=== PATIENT | female | born 2000 | race Two or more races ===

== ENCOUNTER 2019-03-17 16:16 | Emergency (ER) | payer OTHER ==
[~2019-03-17] VITALS: Ht 157.5 cm; Wt 59.0 kg
[2019-03-17] MEDS ORDERED: SODIUM CHLORIDE 0.9% 1,000 ML IV ONE (17:15)
[2019-03-17 17:35] LABS: Basophils # (auto) 0 uL; Basophils % (auto) 0.2 % (0.0-2.0); Eosinophils # (auto) 0 uL; Eosinophils % (auto) 0.3 % (0.0-7.0); Hematocrit 42.3 % (36.0-46.0); Hemoglobin 14.2 g/dL (12.2-16.2); Lymphocytes # (auto) 1.8 uL; Lymphocytes % (auto) 25.9 % (10.0-50.0); Mean Corpuscular Hemoglobin 29.9 pg (28.0-32.0); Mean Corpuscular Hgb Conc. 33.5 g/dL (32.0-36.0); Mean Corpuscular Volume 89.2 fL (80.0-100.0); Monocytes # (auto) 0.4 uL; Monocytes % (auto) 6.2 % (0.0-12.0); Neutrophils # (auto) 4.7 uL; Neutrophils % (auto) 67.4 % (37.0-80.0); Nucleated Red Blood Cells % 0.1 %; Platelet Count (auto) 204 10^3/uL (140-450); Red Blood Cells 4.74 10^6/uL (4.0-5.20)
[2019-03-17 17:36] LABS: Alanine Aminotransferase 22 U/L (13-56); Albumin 4.8 g/dL (3.4-5.0); Anion Gap 10 (5-15); Aspartate Aminotransferase 26 U/L (15-37); Blood Urea Nitrogen 6 mg/dL (7-18); Carbon Dioxide 23 mmol/L (21-32); Chloride 104 mmol/L (98-107); Glucose 96 mg/dL (74-106); Magnesium 2.3 mg/dL (1.6-2.6); Potassium 3.1 mmol/L (3.5-5.1); Sodium 137 mmol/L (136-145)
[2019-03-17 17:40] LABS: Alkaline Phosphatase 65 U/L (45-117); BUN/Creatinine Ratio 8.8; Bilirubin, Total 0.4 mg/dL (0.2-1.0); GFR African American 142 mL/min; GFR Non-African American 117 mL/min; Total Protein 8.4 g/dL (6.4-8.2)
[2019-03-17 18:18] LABS: Urine WBC None Seen /hpf (0 - 5)
[2019-03-17 18:55] LABS: Alcohol, Urine < 3.0 mg/dL (0-5); Amphetamine Screen, Urine NEGATIVE (NEGATIVE); Barbiturate Scree,Urine NEGATIVE (NEGATIVE); Benzodiazephine Screen, Urine NEGATIVE (NEGATIVE); Cannabinoid Screen, Urine NEGATIVE (NEGATIVE); Cocaine Screen, Urine NEGATIVE (NEGATIVE); Opiate Scree,Urine NEGATIVE (NEGATIVE); Phencyclidine Screen, Urine NEGATIVE (NEGATIVE)
[2019-03-17 19:07] LABS: Urine Bacteria NONE SEEN /hpf (None Seen); Urine Blood TRACE /uL (Negative); Urine Specific Gravity 1.005 (1.001-1.035)
[2019-03-17] MEDS ORDERED: POTASSIUM CHL 20 Meq TABLET PO ONE (21:00)
[2019-03-17 21:08] VITALS: BP 112/60
== END 2019-03-17 21:36 | disposition home or self-care (01) ==
LOC: ER 16:16
DX: R07.89 Other chest pain (principal); E87.6 Hypokalemia
CPT/HCPCS: 36415; 71045; 80053; 80307; 81001; 81025; 83735; 84443; 84484; 85025; 85379; 93005; 94761; 99284; J7030

== ENCOUNTER 2019-05-21 09:11 | Emergency (ER) | payer MEDICAID ==
[~2019-05-21] VITALS: Ht 160 cm; Wt 50.8 kg
[2019-05-21 09:15] VITALS: BP 129/75
[2019-05-21 09:55] LABS: Basophils # (auto) 0 uL; Basophils % (auto) 0.5 % (0.0-2.0); Eosinophils # (auto) 0.1 uL; Eosinophils % (auto) 1.4 % (0.0-7.0); Hematocrit 41.8 % (36.0-46.0); Hemoglobin 14.1 g/dL (12.2-16.2); Lymphocytes # (auto) 1.8 uL; Lymphocytes % (auto) 39.1 % (10.0-50.0); Mean Corpuscular Hemoglobin 30.2 pg (28.0-32.0); Mean Corpuscular Hgb Conc. 33.8 g/dL (32.0-36.0); Mean Corpuscular Volume 89.4 fL (80.0-100.0); Monocytes # (auto) 0.4 uL; Neutrophils # (auto) 2.4 uL; Nucleated Red Blood Cells % 0.2 %; Platelet Count (auto) 196 10^3/uL (140-450); Red Blood Cells 4.68 10^6/uL (4.0-5.20); White Blood Cell 4.7 10^3/uL (4.4-10.8)
[2019-05-21 10:10] LABS: Albumin 4.2 g/dL (3.4-5.0); Calcium 9.1 mg/dL (8.5-10.1); Potassium 3.3 mmol/L (3.5-5.1)
[2019-05-21 10:14] LABS: BUN/Creatinine Ratio 11.1; Bilirubin, Total 0.4 mg/dL (0.2-1.0); Total Protein 8.2 g/dL (6.4-8.2)
== END 2019-05-21 10:53 | disposition home or self-care (01) ==
LOC: ER 09:23
DX: R10.32 Left lower quadrant pain (principal)
CPT/HCPCS: 36415; 80053; 81002; 81025; 85025

== ENCOUNTER → 2019-10-01 | Emergency (ER) | payer MEDICAID ==
[~2019-10-01] VITALS: Ht 160 cm; Wt 52.2 kg
[2019-10-01 17:00] LABS: Urine Amorphous Crystal FEW /hpf (None Seen); Urine Bacteria FEW /hpf (None Seen); Urine Blood Negative /uL (Negative); Urine Mucus FEW (None Seen); Urine WBC 1 /hpf (0 - 5)
[2019-10-01 17:07] LABS: Albumin 4.3 g/dL (3.4-5.0); Anion Gap 5 (5-15); Blood Urea Nitrogen 8 mg/dL (7-18); Calcium 8.9 mg/dL (8.5-10.1); Carbon Dioxide 27 mmol/L (21-32); Chloride 105 mmol/L (98-107); Glucose 99 mg/dL (74-106); Potassium 3.7 mmol/L (3.5-5.1); Sodium 137 mmol/L (136-145)
[2019-10-01 17:12] LABS: Alanine Aminotransferase 20 U/L (13-56); Alkaline Phosphatase 65 U/L (45-117); Aspartate Aminotransferase 17 U/L (15-37); BUN/Creatinine Ratio 11.4; Bilirubin, Total 0.3 mg/dL (0.2-1.0); GFR African American 136 mL/min; GFR Non-African American 112 mL/min; Total Protein 8.3 g/dL (6.4-8.2)
[2019-10-01 17:18] LABS: Basophils # (auto) 0 10 ^3/uL (0-0.2); Basophils % (auto) 0.4 % (0.0-2.0); Eosinophils # (auto) 0 10 ^3/uL (0-0.8); Eosinophils % (auto) 0.5 % (0.0-7.0); Hematocrit 41.3 % (36.0-46.0); Lymphocytes # (auto) 1.8 10 ^3/uL (0.4-5.4); Lymphocytes % (auto) 31.9 % (10.0-50.0); Mean Corpuscular Hemoglobin 30.5 pg (28.0-32.0); Mean Corpuscular Volume 89.9 fL (80.0-100.0); Monocytes # (auto) 0.4 10 ^3/uL (0-1.3); Monocytes % (auto) 7.4 % (0.0-12.0); Neutrophils # (auto) 3.3 10 ^3/uL (1.6-8.6); Neutrophils % (auto) 59.8 % (37.0-80.0); Nucleated Red Blood Cells % 0.2 %; Platelet Count (auto) 221 10^3/uL (140-450); Red Blood Cells 4.59 10^6/uL (4.0-5.20); Red Cell Distribution Width 13.4 % (11.8-14.3); White Blood Cell 5.6 10^3/uL (4.4-10.8)
[2019-10-01 19:17] LABS: INR 1.05 (0.9-1.15); Partial Thromboplastin Time 28.4 sec (23.64-32.05)
[2019-10-01 20:30] VITALS: BP 103/44
== END | disposition home or self-care (01) ==
LOC: ER 15:33
DX: R00.2 Palpitations (principal); R06.02 Shortness of breath; R42 Dizziness and giddiness
CPT/HCPCS: 36415; 71046; 80053; 81001; 84443; 84484; 85025; 85379; 85610; 85730

== ENCOUNTER 2020-02-01 10:19 | Emergency (ER) | payer BC, MEDICAID ==
[~2020-02-01] VITALS: Ht 160 cm; Wt 44.9 kg
[2020-02-01 10:24] VITALS: BP 125/76
[2020-02-01 11:04] LABS: Urine Bacteria NONE SEEN /hpf (None Seen); Urine Blood Negative /uL (Negative); Urine Mucus FEW (None Seen); Urine Specific Gravity 1.014 (1.001-1.035); Urine WBC <1 /hpf (0 - 5)
== END 2020-02-01 11:53 | disposition home or self-care (01) ==
LOC: ER 10:19
DX: J40 Bronchitis, not specified as acute or chronic (principal); F41.9 Anxiety disorder, unspecified
CPT/HCPCS: 71045; 81001

== ENCOUNTER 2020-02-07 20:49 | Emergency (ER) | payer MEDICAID ==
[~2020-02-07] VITALS: Ht 160 cm; Wt 45.4 kg
[2020-02-07 21:49] LABS: Basophils # (auto) 0 10 ^3/uL (0-0.2); Basophils % (auto) 0.5 % (0.0-2.0); Eosinophils # (auto) 0 10 ^3/uL (0-0.8); Eosinophils % (auto) 0.6 % (0.0-7.0); Hematocrit 44.9 % (36.0-46.0); Lymphocytes # (auto) 1.8 10 ^3/uL (0.4-5.4); Lymphocytes % (auto) 31.2 % (10.0-50.0); Mean Corpuscular Hemoglobin 30.3 pg (28.0-32.0); Mean Corpuscular Hgb Conc. 33.4 g/dL (32.0-36.0); Mean Corpuscular Volume 90.7 fL (80.0-100.0); Monocytes # (auto) 0.3 10 ^3/uL (0-1.3); Monocytes % (auto) 5.8 % (0.0-12.0); Neutrophils # (auto) 3.7 10 ^3/uL (1.6-8.6); Neutrophils % (auto) 61.9 % (37.0-80.0); Nucleated Red Blood Cells % 0.1 %; Platelet Count (auto) 214 10^3/uL (140-450); Red Blood Cells 4.95 10^6/uL (4.0-5.20); Red Cell Distribution Width 13.1 % (11.8-14.3); White Blood Cell 5.9 10^3/uL (4.4-10.8)
[2020-02-07 22:05] LABS: Alanine Aminotransferase 23 U/L (13-56); Albumin 4.4 g/dL (3.4-5.0); Anion Gap 7 (5-15); Aspartate Aminotransferase 17 U/L (15-37); BUN/Creatinine Ratio 14.3; Blood Urea Nitrogen 10 mg/dL (7-18); Calcium 9.1 mg/dL (8.5-10.1); Carbon Dioxide 26 mmol/L (21-32); Chloride 104 mmol/L (98-107); GFR African American 136 mL/min; GFR Non-African American 112 mL/min; Glucose 100 mg/dL (74-106); Magnesium 2.3 mg/dL (1.6-2.6); Potassium 3.3 mmol/L (3.5-5.1); Sodium 137 mmol/L (136-145)
[2020-02-07 22:05] LABS: Urine Bacteria FEW /hpf (None Seen); Urine Blood Negative /uL (Negative); Urine Specific Gravity 1.005 (1.001-1.035); Urine WBC 10 /hpf (0 - 5)
[2020-02-07 22:10] LABS: Alkaline Phosphatase 80 U/L (45-117); Bilirubin, Total 0.3 mg/dL (0.2-1.0); Total Protein 8.9 g/dL (6.4-8.2)
[2020-02-07] MEDS ORDERED: DONNATAL 5ml ORAL Elix (BELLADONNA ALK-PHENOBARB) PO ONE (23:45)
[2020-02-07] MEDS ORDERED: LIDOCAINE VISCOUS 2% 15ML UD PO ONE (23:45)
[2020-02-07] MEDS ORDERED: ALUM & MAG HYDROX-SIMETH LIQ(MAALOX) 30 ML PO ONE (23:45)
[2020-02-07 23:52] VITALS: BP 128/79
== END 2020-02-07 23:56 | disposition home or self-care (01) ==
LOC: ER 20:49
DX: K21.9 Gastro-esophageal reflux disease without esophagitis (principal); N39.0 Urinary tract infection, site not specified
CPT/HCPCS: 36415; 71045; 80053; 81001; 83735; 84484; 85025; 93005

== ENCOUNTER 2020-02-18 10:47 | Emergency (ER) | payer BC, MEDICAID ==
[~2020-02-18] VITALS: Ht 160 cm; Wt 44.5 kg
[2020-02-18 11:46] LABS: Basophils # (auto) 0 10 ^3/uL (0-0.2); Basophils % (auto) 0.8 % (0.0-2.0); Eosinophils # (auto) 0 10 ^3/uL (0-0.8); Eosinophils % (auto) 0.1 % (0.0-7.0); Hematocrit 43.3 % (36.0-46.0); Hemoglobin 14.5 g/dL (12.2-16.2); Lymphocytes % (auto) 22.1 % (10.0-50.0); Mean Corpuscular Hemoglobin 30.1 pg (28.0-32.0); Mean Corpuscular Hgb Conc. 33.4 g/dL (32.0-36.0); Mean Corpuscular Volume 90.1 fL (80.0-100.0); Monocytes # (auto) 0.2 10 ^3/uL (0-1.3); Monocytes % (auto) 5.6 % (0.0-12.0); Neutrophils # (auto) 3.1 10 ^3/uL (1.6-8.6); Neutrophils % (auto) 71.4 % (37.0-80.0); Nucleated Red Blood Cells % 0.1 %; Platelet Count (auto) 214 10^3/uL (140-450); Red Cell Distribution Width 13.4 % (11.8-14.3); White Blood Cell 4.4 10^3/uL (4.4-10.8)
[2020-02-18 12:09] LABS: Chloride 106 mmol/L (98-107); Potassium 3.7 mmol/L (3.5-5.1); Sodium 136 mmol/L (136-145)
[2020-02-18 12:21] LABS: Alanine Aminotransferase 16 U/L (13-56); Albumin 4.3 g/dL (3.4-5.0); Alkaline Phosphatase 60 U/L (45-117); Anion Gap 5 (5-15); Aspartate Aminotransferase 14 U/L (15-37); BUN/Creatinine Ratio 11.1; Bilirubin, Total 0.3 mg/dL (0.2-1.0); Blood Urea Nitrogen 7 mg/dL (7-18); Calcium 8.9 mg/dL (8.5-10.1); Carbon Dioxide 25 mmol/L (21-32); GFR African American 153 mL/min; GFR Non-African American 127 mL/min; Glucose 92 mg/dL (74-106); Total Protein 8.2 g/dL (6.4-8.2)
[2020-02-18 14:45] VITALS: BP 109/73
== END 2020-02-18 15:40 | disposition home or self-care (01) ==
LOC: ER 10:47
DX: R07.89 Other chest pain (principal)
CPT/HCPCS: 36415; 71046; 80053; 84484; 85025; 85379; 93005

== ENCOUNTER 2020-06-07 09:02 | Emergency (ER) | payer MEDICAID ==
[~2020-06-07] VITALS: Ht 160 cm; Wt 42.2 kg
[2020-06-07 09:18] VITALS: BP 141/74
[2020-06-07] MEDS ORDERED: methylPREDNISolone SOD SUCC 125 MG/2 ML VL IM ONE (09:45)
[2020-06-07] MEDS ORDERED: cefTRIAXone SOD 1,000 MG VL IM ONE (09:45)
[2020-06-07] MEDS ORDERED: EPINEPHrine HCL 1 MG/1 ML AMP SC ONE (10:00)
== END 2020-06-07 10:32 | disposition home or self-care (01) ==
LOC: ER 09:02
DX: T78.40XA Allergy, unspecified, initial encounter (principal); X58.XXXA Exposure to other specified factors, initial encounter
CPT/HCPCS: 96372; 99284; J0171; J0696; J2930

== ENCOUNTER 2021-05-29 13:40 | Emergency (ER) | payer MEDICAID ==
[~2021-05-29] VITALS: Ht 160 cm; Wt 47.6 kg
[2021-05-29] MEDS ORDERED: AZIT1POW12 PO (15:12)
[2021-05-29] MEDS ORDERED: ALBU108A5 IN (15:12)
[2021-05-29 15:55] VITALS: BP 124/80
== END 2021-05-29 16:11 | disposition home or self-care (01) ==
LOC: ER 13:40
DX: J20.9 Acute bronchitis, unspecified (principal); Z20.822 Contact with and (suspected) exposure to COVID-19
CPT/HCPCS: 36415; 71046; 87426

== ENCOUNTER 2021-11-18 08:51 | Emergency (ER) | payer MEDICAID ==
[~2021-11-18] VITALS: Ht 160 cm; Wt 48.1 kg
[~2021-11-18 08:51] MED LIST: ALBU108A5 IN; AZIT1POW12 PO
[2021-11-18 09:46] LABS: Basophils # (auto) 0 10 ^3/uL (0-0.2); Basophils % (auto) 0.5 % (0.0-2.0); Eosinophils # (auto) 0.1 10 ^3/uL (0-0.8); Eosinophils % (auto) 2.3 % (0.0-7.0); Hematocrit 42.4 % (36.0-46.0); Hemoglobin 14.5 g/dL (12.2-16.2); Lymphocytes # (auto) 0.9 10 ^3/uL (0.4-5.4); Lymphocytes % (auto) 22.8 % (10.0-50.0); Mean Corpuscular Hemoglobin 30.7 pg (28.0-32.0); Mean Corpuscular Hgb Conc. 34.2 g/dL (32.0-36.0); Mean Corpuscular Volume 89.6 fL (80.0-100.0); Monocytes # (auto) 0.3 10 ^3/uL (0-1.3); Monocytes % (auto) 6.7 % (0.0-12.0); Neutrophils # (auto) 2.8 10 ^3/uL (1.6-8.6); Neutrophils % (auto) 67.7 % (37.0-80.0); Nucleated Red Blood Cells % 0.1 %; Red Blood Cells 4.73 10^6/uL (4.0-5.20); White Blood Cell 4.1 10^3/uL (4.4-10.8)
[2021-11-18 09:57] LABS: Albumin 4.2 g/dL (3.4-5.0); Calcium 9.3 mg/dL (8.5-10.1)
[2021-11-18 09:57] LABS: Urine Blood 1+ /uL (Negative); Urine Specific Gravity 1.015 (1.001-1.035)
[2021-11-18 09:59] LABS: Urine WBC 0-5 /hpf (0 - 5)
[2021-11-18 10:00] LABS: Urine Bacteria FEW /hpf (None Seen)
[2021-11-18 10:01] LABS: BUN/Creatinine Ratio 14.5; Bilirubin, Total 0.2 mg/dL (0.2-1.0); Total Protein 8.2 g/dL (6.4-8.2)
[2021-11-18 11:35] VITALS: BP 110/58
== END 2021-11-18 13:12 | disposition left against medical advice (07) ==
LOC: ER 08:51
DX: N93.9 Abnormal uterine and vaginal bleeding, unspecified (principal); R10.2 Pelvic and perineal pain; Z53.21 Procedure and treatment not carried out due to patient leaving prior to being seen by health care provider
CPT/HCPCS: 36415; 76830; 76856; 80053; 81001; 84702; 85025

== ENCOUNTER 2022-10-31 05:10 | Emergency (ER) | payer MEDICAID ==
[~2022-10-31] VITALS: Ht 160 cm; Wt 52.3 kg
[2022-10-31 06:19] LABS: Basophils # (auto) 0 10 ^3/uL (0-0.2); Basophils % (auto) 0.3 % (0.0-2.0); Eosinophils # (auto) 0 10 ^3/uL (0-0.8); Eosinophils % (auto) 0.8 % (0.0-7.0); Hematocrit 38.4 % (36.0-46.0); Hemoglobin 13.2 g/dL (12.2-16.2); Lymphocytes # (auto) 1.2 10 ^3/uL (0.4-5.4); Lymphocytes % (auto) 20.5 % (10.0-50.0); Mean Corpuscular Hgb Conc. 34.5 g/dL (32.0-36.0); Mean Corpuscular Volume 89.8 fL (80.0-100.0); Monocytes # (auto) 0.3 10 ^3/uL (0-1.3); Monocytes % (auto) 5.3 % (0.0-12.0); Neutrophils # (auto) 4.4 10 ^3/uL (1.6-8.6); Neutrophils % (auto) 73.1 % (37.0-80.0); Nucleated Red Blood Cells % 0.1 %; Red Blood Cells 4.27 10^6/uL (4.0-5.20)
[2022-10-31 06:40] LABS: Albumin 3.6 g/dL (3.4-5.0); Calcium 9.7 mg/dL (8.5-10.1); Potassium 3.9 mmol/L (3.5-5.1)
[2022-10-31 06:44] LABS: BUN/Creatinine Ratio 9.8 (10.0-20.0); Bilirubin, Total 0.3 mg/dL (0.2-1.0); Total Protein 7.7 g/dL (6.4-8.2)
[2022-10-31 07:00] LABS: Urine Bacteria FEW /hpf (None Seen); Urine Blood Negative /uL (Negative); Urine Mucus FEW (None Seen); Urine WBC 2 /hpf (0 - 5)
[2022-10-31 07:46] VITALS: BP 135/79
== END 2022-10-31 08:16 | disposition home or self-care (01) ==
LOC: ER 05:10
DX: O34.81 Maternal care for other abnormalities of pelvic organs, first trimester (principal); N83.202 Unspecified ovarian cyst, left side; R10.2 Pelvic and perineal pain; Z3A.08 8 weeks gestation of pregnancy
CPT/HCPCS: 36415; 76801; 80053; 81001; 83690; 84702; 85025

== ENCOUNTER 2023-02-25 22:06 | Observation (INO) | payer MEDICAID ==
[~2023-02-25] VITALS: Ht 160 cm; Wt 58.1 kg
[2023-02-25] MEDS ORDERED: LACTATED RINGER'S 1,000 ML IV ONE ×2 (22:30)
[2023-02-25 23:27] LABS: Urine Bacteria NONE SEEN /hpf (None Seen); Urine Blood Negative /uL (Negative); Urine Clarity Clear (Clear); Urine Protein, UAD Negative (Negative); Urine Specific Gravity 1.002 (1.001-1.035); Urine Urobilinogen Normal (Negative); Urine WBC <1 /hpf (0 - 5)
[2023-02-25 23:28] LABS: Urine Color Straw (Yellow)
== END 2023-02-26 00:17 | disposition home or self-care (01) ==
LOC: LDRP 22:06
PROVIDERS: ADMIT Obstetrics & Gynecology; ATTEND Obstetrics & Gynecology
DX: O26.892 Other specified pregnancy related conditions, second trimester (principal); R10.9 Unspecified abdominal pain; O36.8120 Decreased fetal movements, second trimester, not applicable or unspecified; Z3A.25 25 weeks gestation of pregnancy
CPT/HCPCS: 59025; 81001; 81002; 96360; 96365; G0378